=== PATIENT | female | born 1990 | race Caucasian/White ===

== ENCOUNTER 2019-03-15 17:50 | Emergency (ER) | payer OTHER ==
--- OUTSIDE RECORDS SUMMARY | 2019-03-15 17:51 | XMS REPORT ---
:1990 [facility] [address] [place] [address] Dr. iVnson [address] [place] [id number] Care Team Providers Name Role Phone Unavailable Unavailable Unavailable Problems This patient has no known problems. Allergies, Adverse Reactions, Alerts This patient has no known allergies or adverse reactions. Medications This patient has no known medications.
--- NOTE | 2019-03-15 19:19 | ER ---
Nurse's Notes [facility] Name: Janna Cadena Age: 28 yrs Sex: Female : 1990 Arrival Date: 03/15/2019 Time: 17:52 Bed 26 Private MD: Diagnosis: Acute pharyngitis Presentation: 03/15 18:22 Presenting complaint: Patient states: sore throat since yesterday, decreased energy sr5 level. 5 months . Initial Sepsis Screen: Does the patient meet any 2 criteria? No. Patient's initial sepsis screen is negative. 18:22 Method Of Arrival: Ambulatory sr5 18:22 Acuity: MARISSA 4 sr5 18:48 Transition of care: patient was not received from another setting of care. Onset of mg2 symptoms was March 14, 2019. Risk Assessment: Do you want to hurt yourself or someone else? Patient reports no desire to harm self or others. Initial Sepsis Screen: Does the patient have a suspected source of infection? No. Patient's initial sepsis screen is negative. Care prior to arrival: None. Triage Assessment: 18:23 General: Appears in no apparent distress. Behavior is calm, cooperative. Pain: sr5 Complains of pain in neck. EENT: Reports pain when swallowing. Neuro: No deficits noted. Cardiovascular: No deficits noted. Respiratory: Parent/caregiver reports the patient having cough that is. 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 - Social history:: Smoking status: Patient uses tobacco products, denies chronic smoking, but will smoke occasionally. - Ebola Screening: : Patient negative for fever greater than or equal to 101.5 degrees Fahrenheit, and additional compatible Ebola Virus Disease symptoms. Screenin:47 Abuse screen: Denies threats or abuse. Denies injuries from another. Nutritional mg2 screening: No deficits noted. Tuberculosis screening: No symptoms or risk factors identified. Fall Risk None identified. Assessment: 18:47 General: Appears in no apparent distress. comfortable, Behavior is calm, cooperative. mg2 Pain: Complains of pain in throat. Neuro: Level of Consciousness is awake, alert, obeys commands, Oriented to person, place, time, situation. Cardiovascular: Capillary refill < 3 seconds Patient's skin is warm and dry. Respiratory: Airway is compromised Respiratory effort is even, unlabored, GI: No signs and/or symptoms were reported involving the gastrointestinal system. : No signs and/or symptoms were reported regarding the genitourinary system. EENT: Throat is reddened Reports sore throat. Derm: Skin is intact, is healthy with good turgor, Skin is pink, warm \T\ dry. normal. Musculoskeletal: Circulation, motion, and sensation intact. Capillary refill < 3 seconds. Vital Signs: 18:23 BP 118 / 72; Pulse 93; Resp 18; Temp 98.4; Pulse Ox 100% ; Weight 79.38 kg (R); Height sr5 5 ft. 4 in. (162.56 cm); Pain 4/10; 19:22 BP 120 / 78; Pulse 90; Resp 18; Temp 98; Pulse Ox 100% on R/A; mg2 18:23 Body Mass Index 30.04 (79.38 kg, 162.56 cm) sr5 ED Course: 17:52 Patient arrived in ED. as 18:02 Magda Goode FNP-C is [facility]. kb 18:02 Toribio Gregory MD is Attending Physician. kb 18:22 Triage completed. sr5 18:23 Arm band placed on. sr5 18:24 Flu and/or RSV swab sent to lab. Strep swab sent to lab. Patient maintains SpO2 jp3 saturation greater than 95% on room air. 18:43 Bed in low position. Call light in reach. Verbal reassurance given. Pulse ox on. NIBP jp3 on. 18:46 Raul Mckeon, BOOGIE is Primary Nurse. mg2 18:48 No provider procedures requiring assistance completed. mg2 19:23 IV discontinued, intact, bleeding controlled, No redness/swelling at site. Pressure mg2 dressing applied. Administered Medications: No medications were administered Outcome: 19:17 Discharge ordered by . kb 19:23 Discharged to home ambulatory. mg2 19:23 Condition: good 19:23 Discharge instructions given to patient, Instructed on discharge instructions, follow up and referral plans. Demonstrated understanding of instructions, follow-up care. 19:23 Patient left the ED. mg2 Signatures: Magda Goode, CLAUDIAC SENIOR SOURCING MANAGER-Jamila Camacho Sam RN RN sr5 Raul Mckeon, RN RN mg2 Tulio Jones jp3
--- NOTE | 2019-03-15 19:19 | EDPHYS ---
Physician Documentation [facility] Name: Janna Cadena Age: 28 yrs Sex: Female : 1990 Arrival Date: 03/15/2019 Time: 17:52 Bed 26 Private MD: ED Physician Toribio Gregory HPI: 03/15 19:16 This 28 yrs old Female presents to ER via Ambulatory with complaints of Sore kb Throat. 19:16 The patient presents with "scratchy throat". The patient describes throat pain as kb scratchy. Onset: The symptoms/episode began/occurred yesterday. Severity of symptoms: At their worst the symptoms were moderate, in the emergency department the symptoms are unchanged. Modifying factors: The symptoms are alleviated by nothing, the symptoms are aggravated by nothing. Associated signs and symptoms: Pertinent positives: Sore throat Pertinent negatives fever. The patient has not experienced similar symptoms in the past. The patient has not recently seen a physician. 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 - Social history:: Smoking status: Patient uses tobacco products, denies chronic smoking, but will smoke occasionally. - Ebola Screening: : Patient negative for fever greater than or equal to 101.5 degrees Fahrenheit, and additional compatible Ebola Virus Disease symptoms. ROS: 19:16 Constitutional: Negative for fever, chills, and weight loss, Neck: Negative for injury, kb pain, and swelling, Cardiovascular: Negative for chest pain, palpitations, and edema, Respiratory: Negative for shortness of breath, cough, wheezing, and pleuritic chest pain, Abdomen/GI: Negative for abdominal pain, nausea, vomiting, diarrhea, and constipation, MS/Extremity: Negative for injury and deformity, Skin: Negative for injury, rash, and discoloration, Neuro: Negative for headache, weakness, numbness, tingling, and seizure. 19:16 ENT: Positive for sore throat. Exam: 19:16 Constitutional: This is a well developed, well nourished patient who is awake, alert, kb and in no acute distress. Head/Face: Normocephalic, atraumatic. ENT: Nares patent. No nasal discharge, no septal abnormalities noted. Tympanic membranes are normal and external auditory canals are clear. Oropharynx with no redness, swelling, or masses, exudates, or evidence of obstruction, uvula midline. Mucous membranes moist. Neck: Trachea midline, no thyromegaly or masses palpated, and no cervical lymphadenopathy. Supple, full range of motion without nuchal rigidity, or vertebral point tenderness. No Meningismus. Chest/axilla: Normal chest wall appearance and motion. Nontender with no deformity. No lesions are appreciated. Cardiovascular: Regular rate and rhythm with a normal S1 and S2. No gallops, murmurs, or rubs. Normal PMI, no JVD. No pulse deficits. Respiratory: Lungs have equal breath sounds bilaterally, clear to auscultation and percussion. No rales, rhonchi or wheezes noted. No increased work of breathing, no retractions or nasal flaring. Abdomen/GI: Soft, non-tender, with normal bowel sounds. No distension or tympany. No guarding or rebound. No evidence of tenderness throughout. Skin: Warm, dry with normal turgor. Normal color with no rashes, no lesions, and no evidence of cellulitis. MS/ Extremity: Pulses equal, no cyanosis. Neurovascular intact. Full, normal range of motion. Neuro: Awake and alert, GCS 15, oriented to person, place, time, and situation. Cranial nerves II-XII grossly intact. Motor strength 5/5 in all extremities. Sensory grossly intact. Cerebellar exam normal. Normal gait. Vital Signs: 18:23 BP 118 / 72; Pulse 93; Resp 18; Temp 98.4; Pulse Ox 100% ; Weight 79.38 kg (R); Height sr5 5 ft. 4 in. (162.56 cm); Pain 4/10; 19:22 BP 120 / 78; Pulse 90; Resp 18; Temp 98; Pulse Ox 100% on R/A; mg2 18:23 Body Mass Index 30.04 (79.38 kg, 162.56 cm) sr5 MDM: 18:39 Patient medically screened. [facility] 19:16 Data reviewed: vital signs, nurses notes. Data interpreted: Pulse oximetry: on room air kb is 100 %. Interpretation: normal. Counseling: I had a detailed discussion with the patient and/or guardian regarding: the historical points, exam findings, and any diagnostic results supporting the discharge/admit diagnosis, lab results, the need for outpatient follow up, a family practitioner, to return to the emergency department if symptoms worsen or persist or if there are any questions or concerns that arise at home. 03/15 18:21 Order name: Flu; Complete Time: 19:10 sr5 03/15 18:21 Order name: Strep; Complete Time: 19:10 sr5 03/15 19:07 Order name: Throat Culture EDMS Administered Medications: No medications were administered Disposition: 19:44 Co-signature as Attending Physician, Toribio Gregory MD I agree with the assessment and binu plan of care. Disposition: 03/15/19 19:17 Discharged to Home. Impression: Acute pharyngitis. - Condition is Stable. - Discharge Instructions: Pharyngitis, [id number], Sore Throat, [id number]. - Medication Reconciliation Form, Thank You Letter, Antibiotic Education, Prescription Opioid Use form. - Follow up: Emergency Department; When: As needed; Reason: Worsening of condition. Follow up: Private Physician; When: 2 - 3 days; Reason: Recheck today's complaints, Continuance of care, Re-evaluation by your physician. Signatures: Dispatcher [employer] EDRI Magda Goode, CORN CUTTER-C CORN CUTTER-Ckb Toribio Gregory MD MD cha Resecker, Sam RN RN sr5 Raul Mckeon RN RN mg2 Corrections: (The following items were deleted from the chart) 19:23 19:17 03/15/2019 19:17 Discharged to Home. Impression: Acute pharyngitis. Condition is mg2 Stable. Forms are Medication Reconciliation Form, Thank You Letter, Antibiotic Education, Prescription Opioid Use. Follow up: Emergency Department; When: As needed; Reason: Worsening of condition. Follow up: Private Physician; When: 2 - 3 days; Reason: Recheck today's complaints, Continuance of care, Re-evaluation by your physician. kb
[2019-03-15 19:31] VITALS: O2SAT 100
[2019-03-15 19:32] VITALS: BP 120/78; TEMP 98
== END 2019-03-15 19:23 | disposition home or self-care (01) ==
LOC: ER 17:50
DX: O26.891 Other specified pregnancy related conditions, first trimester (principal); O99.331 Smoking (tobacco) complicating pregnancy, first trimester; Z3A.01 Less than 8 weeks gestation of pregnancy
CPT/HCPCS: 87070; 87081; 87804; 99284